=== PATIENT | female | born 1995 ===

== ENCOUNTER 2023-07-20 08:12 | Inpatient (IN) | payer OTHER, SELFPAY ==
[2023-07-20] VITALS (44 sets, daily range): BP systolic 83–164; BP diastolic 50–79; PULSE 75–210; RESP 16–18; TEMP 36.2–36.8; O2SAT 90–100; BMI 25.7
[2023-07-20] MEDS: LACTATED RINGERS 1000 ML 1,000 ML 1200 ML IV (08:22)
--- NOTE | 2023-07-20 08:58 | PM.OBHPLI ---
OB - H&P: HPI Labor/Induction History of Present Illness Date Seen: 07/20/23 Chief Complaint: The patient is a 27 year old 2 para 1 at 40.4 weeks gestation by 1st trimester ultrasound and LMP, who presents with contractions. Chief complaint: Maternity Narrative: Ruma Ferreira is a 27 year old female who had the onset of contractions at 4:30 this morning. She has had an uncomplicated to date. She was planning to be induced next week. She has not had ROM. Feeling good movement. Otherwise feeling well. She had 1 prior term vaginal delivery that was uncomplicated. History of Present care: good care Ultrasounds: normal 1st trimester US and normal mid trimester US Medical complications: none Labs Blood type: O (+) positive Rubella: immune RPR/VDLR: nonreactive GBS status: negative HBsAG: negative Review of Systems Status of ROS: Reports: 10 or more systems reviewed and unremarkable except as noted in History and below Meds Home Medications and Allergies Allergies Allergy/AdvReac Type Severity Reaction Status Date / Time amoxicillin Allergy Intermediate Hives Verified 07/20/23 08:50 OB - H&P: Exam Physical Exam: Vital signs: Temp Pulse Resp BP Pulse Ox 98.3 F 80 17 119/77 99 07/20/23 06:44 07/20/23 08:57 07/20/23 06:44 07/20/23 08:57 07/20/23 08:55 Routine Respiratory Exam: Respiratory: Present CTA bilaterally Routine Cardiovascular Exam: Cardiovascular: RRR Detailed Labor and Delivery Exam: Patient Gravid: Yes Dilation (cm): 2 Effacement (%): 60 Comments: per RN Fetus (Single): Heart Rate Baseline: 130 Monitor Accelerations: Present Monitor Decelerations: None Physical Exam: Vital signs: Temp Pulse Resp BP Pulse Ox 98.3 F 83 17 94/64 96 07/20/23 06:44 07/20/23 09:20 07/20/23 06:44 07/20/23 09:20 07/20/23 09:20 Detailed Labor and Delivery Exam: Patient Gravid: Yes Dilation (cm): 2 Effacement (%): 60 Fetus (Single): Heart Rate Baseline: 130 Monitor Accelerations: Present Monitor Decelerations: None OB - Problem Based A/P Additional Plan (1) Spontaneous onset of labor: Status: Acute Plan She has changed from 2.5 to 3.5 cm per RN. Admit for active labor. Patient desires epidural. Will get now. Anticipate later today. Delivery/Labor/Induction Plan Plan: expectant management OB - H&P - Exam Vital signs: Temp Pulse Resp BP Pulse Ox 98.3 F 75 17 94/54 L 96 07/20/23 06:44 07/20/23 09:22 07/20/23 06:44 07/20/23 09:22 07/20/23 09:20 Routine Respiratory Exam Present CTA bilaterally Routine Cardiovascular Exam Cardiovascular: Present RRR; Absent murmur Routine Abdominal Exam Comments: Gravid uterus. Baby cephalic by Leopolds. EFW 3500 g. Detailed Labor and Delivery Exam Dilation (cm): 2 Effacement (%): 60 Comments: per RN Fetus (Single) Heart Rate Baseline: 130 Monitor Accelerations: Present Monitor Decelerations: None
[2023-07-20] MEDS: ROPIVACAINE 0.2% 100 ml 100 ML 12 MG EPIDURAL (09:05)
--- NOTE | 2023-07-20 09:13 | PM.ANBPRC ---
PFSH PFSH Social History Smoking Status: Never smoker Meds Home Medications and Allergies Allergies Allergy/AdvReac Type Severity Reaction Status Date / Time amoxicillin Allergy Intermediate Hives Verified 07/20/23 08:50 Results Vital Signs Vital Signs: Last Vital Signs Temp 98.3 F 07/20/23 06:44 Pulse 84 07/20/23 09:12 Resp 17 07/20/23 06:44 BP 110/66 07/20/23 09:12 Pulse Ox 99 07/20/23 09:10 Weight: 74.48 kg Height: 170.18 cm Anesthesia Procedures Epidural Insertion Patient Location: OB Start Time: : Stop Time: :30 Start Date: 07/20/23 Stop Date: 07/20/23 Reason for Block: procedure for pain Patient Position: sitting Performed By: Luis Reyna Preanesthetic Checklist: IV checked, risks and benefits discussed, surgical consent, monitors and equipment checked, pre-op evaluation, timeout performed and anesthesia consent Prep: chlorhexidine gluconate Monitoring: blood pressure monitoring, continuous pulse oximetry and heart rate Approach: midline Vertebral Space: lumbar (1-5) Epidural Technique: FRANC saline Needle Type: Tuohy needle Injection Technique: continuous catheter Needle gauge: 17 Needle Length (cm): 10 cm Needle Insertion Depth (cm): 6 Catheter Gauge: 19 Catheter Type: multi-orifice Catheter at skin depth (cm): 12 Test Dose Result: negative and lidocaine 1.5% with epinephrine 1 to 200,000
--- NOTE | 2023-07-20 10:21 | P.OBPN_ITS ---
Subjective Date Seen: 07/20/23 Narrative: Patient comfortable with epidural. 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 Has a bulging bag but wants to wait on AROM. Would like to avoid intervention. She had a short episode of feeling short of breath without pain but that has resolved. Vitals were normal during this time. Anticipate soon.
[2023-07-20] MEDS: OXYTOCIN 30 unit/500 ML in NS 30 UNIT/500 ML BAG 325 UNIT IVPB (12:08)
--- NOTE | 2023-07-20 12:38 | W.PM.VAGDEL1 ---
Procedure Procedure Done: only Intrapartal Events: None Delivery monitor: external FHT and external uterine Route of delivery: Laceration description: Labial Delivery repair: Vicryl Estimated blood loss (mL): 350 Anesthesia type: Epidural Disposition: floor Narrative: 1st stage of labor: Contractions started at home at 4 am. Got more uncomfortable so she came in for evaluation. Found to be 2 cm initially and changed to 3.5 cm 1 hour later. Admitted for BISI. Desired to avoid interventions. Progressed and found to be complete at 1130. Tracing was category 1 through the first stage. 2nd stage of labor: AROM performed with clear fluid as bulging bag was present at cervix. Started pushing and progressed to delivery at 1208. Occasional bradycardia during 2nd stage. Heart rate would always come back up to the low 100s and generally in the 130s. No persistent bradycardia prior to delivery. There was a 30 second shoulder dystocia that responded to Joseph and suprapubic pressure. Baby delivered via OA position. She had the cord clamped and cut at the perineum due to initial poor tone and brought to warmer. Baby cried immediately when getting to the warmer. 3rd stage of labor: Pitocin started immediately after delivery of the infant. Placenta delivered spontaneously at 1212. She had bleeding from multiple blood vessels with a 2nd degree perineal laceration. 3 separate figure 8 sutures with 3-0 Vicryl were placed around bleeding vessels with improvement in bleeding. 2 interrupted sutures were placed in the perineal laceration with good approximation as well with resolution of bleeding. Sponge count correct after completion. No ongoing bleeding noted after repair. Infant Infant Gender: Female presentation: vertex Placental Delivery Description: Spontaneous Cord Description: 3 Vessels
[2023-07-20] MEDS: ACETAMINOPHEN 500 MG TABLET 1000 MG PO (19:02)
[2023-07-20] MEDS: IBUPROFEN 600 MG TABLET PO (20:05)
[2023-07-21 00:06] VITALS: BP 99/62; PULSE 81; RESP 16; TEMP 36.7; O2SAT 96
[2023-07-21] MEDS: IBUPROFEN 600 MG TABLET PO ×2 (04:31→14:22)
[2023-07-21 04:52] VITALS: BP 97/57; PULSE 99; RESP 18; TEMP 36.9; O2SAT 97
[2023-07-21 07:13] LABS: Hemoglobin* 11.1 gm/dL (12.0-16.0)
[2023-07-21] MEDS: ACETAMINOPHEN 500 MG TABLET 1000 MG PO (07:39)
[2023-07-21] MEDS: DOCUSATE SODIUM 100 MG CAPSULE PO (07:41)
[2023-07-21 07:49] VITALS: BP 106/69; PULSE 89; RESP 16; TEMP 36.5; O2SAT 98
[2023-07-21 11:25] VITALS: BP 100/65; RESP 16; TEMP 36.3; O2SAT 96
== END 2023-07-21 17:20 | disposition home or self-care (01) | DRG 807 ==
LOC: OB OUT 08:13 → OB 08:13
PROVIDERS: Admitting Provider Surgery; PCP Family Medicine; Visit Provider Surgery
DX: O48.0 Post-term pregnancy (principal); Z37.0 Single live birth; O70.1 Second degree perineal laceration during delivery; O66.0 Obstructed labor due to shoulder dystocia; O76 Abnormality in fetal heart rate and rhythm complicating labor and delivery; Z3A.40 40 weeks gestation of pregnancy
CPT/HCPCS: 01967; 36415; 85018; A9270; J2371; J2795; J7120; S0020

== ENCOUNTER 2024-11-18 12:02 | Outpatient (CLI) | payer OTHER, MEDICAID, SELFPAY ==
--- NOTE | 2024-11-18 12:15 | CRLHL7_ITS ---
For Patients: As a result of the Cures Act, medical imaging exams and procedure reports are released immediately into your electronic medical record. You may view this report before your referring provider. If you have questions, please contact your health care provider. OB ULTRASOUND INDICATION: Dating and viability. Surgery: None. Imaging: Transvaginal. TECHNIQUE: Real time grayscale imaging of the fetus was performed. Transvaginal. LMP: 09/19/2024. VONDA by LMP: 08/26/2024. GA: 8 w, 4 d. Previous US: No. CRL: 1.2 cm. 7 w 3 d. VONDA: 07/04/2025. FHR: 142 BPM. Gestational sac: 1.7 cm. Yolk sac: 4.0 mm. Appears within normal limits. Right ovary: 3.9 x 3.2 x 1.9 cm. CL. Left ovary: N/V. IMPRESSION: 1. Single living intrauterine with sonographic gestational age 7 weeks 3 days and sonographic due date 07/04/2025. 2. Incidental corpus luteal cyst right ovary. 3. Subchorionic hemorrhage is present surrounding the gestational sac, measuring up to 5.6 cm. Rojas Hdez M.D. Diagnostic Radiologist [email or web address] CARLOZ/bowen wiseman/Dictated by: Rojas Hdez MD @ 11/18/2024 1:09:00 PM (Electronically Signed)
== END 2024-11-18 12:03 | disposition home or self-care (01) ==
LOC: US 12:05
PROVIDERS: Visit Provider Registered Nurse
DX: Z34.91 Encounter for supervision of normal pregnancy, unspecified, first trimester (principal); O20.9 Hemorrhage in early pregnancy, unspecified; O34.81 Maternal care for other abnormalities of pelvic organs, first trimester; N83.11 Corpus luteum cyst of right ovary; Z3A.01 Less than 8 weeks gestation of pregnancy
CPT/HCPCS: 76817

== ENCOUNTER 2024-12-02 11:52 | Outpatient (CLI) | payer OTHER, MEDICAID, SELFPAY ==
--- NOTE | 2024-12-02 12:15 | CRLHL7_ITS ---
For Patients: As a result of the Century Cures Act, medical imaging exams and procedure reports are released immediately into your electronic medical record. You may view this report before your referring provider. If you have questions, please contact your health care provider. OB ULTRASOUND FIRST TRIMESTER TRANSVAGINAL INDICATION: Hemorrhage in early . TECHNIQUE: Real time marie scale imaging of the fetus was performed. Transvaginal. VONDA by US: 07/04/2025. GA: 9 w, 3 d. Previous US: Yes, 11/18/2024. VONDA by US: 07/04/2025. GA: 7 w, 3 d. CRL: 2.6 cm. 9 w 3 d. VONDA: 07/04/2025. FHR: 173 BPM. Gestational sac: 3.1 cm. Appears within normal limits. Yolk sac: 4.6 mm. Appears within normal limits. Right ovary: Within normal limits. 4.0 x 2.0 x 2.6 cm. CL. Left ovary: N/V. COMMENT: Single live IUP. IMPRESSION: 1. Sonographic gestational age 9 weeks 3 days and sonographic due date 07/04/2025. 2. Inferior subchorionic hemorrhage measures 2.8 x 3.5 x 2.6 cm, previously measuring up to 5.6 cm. Rojas Hdez M.D. Diagnostic Radiologist [email or web address] SP/Dictated by: Rojas Hdez MD @ 12/03/2024 8:11:00 PM (Electronically Signed)
== END 2024-12-02 11:53 | disposition home or self-care (01) ==
LOC: US 11:52
PROVIDERS: Visit Provider Advanced Practice Midwife
DX: O20.9 Hemorrhage in early pregnancy, unspecified (principal); Z3A.09 9 weeks gestation of pregnancy
CPT/HCPCS: 76817; 83021; 86592; 86703; 86704; 86706; 86762; 86787; 86803; 86850; 86900; 86901; 87086; 87340

== ENCOUNTER 2024-12-02 13:15 | Outpatient (CLI) | payer OTHER, SELFPAY | END 2024-12-02 13:16 | disposition home or self-care (01) | PROVIDERS: Visit Provider Advanced Practice Midwife | DX: Z34.81 Encounter for supervision of other normal pregnancy, first trimester (principal) | CPT/HCPCS: 83020; 83021; 85660; 86592; 86703; 86704; 86706; 86762; 86787; 86803; 86850; 86900; 86901; 87086; 87340 ==

== ENCOUNTER 2025-02-12 08:09 | Outpatient (CLI) | payer OTHER, MEDICAID, SELFPAY ==
--- NOTE | 2025-02-12 08:15 | CRLHL7_ITS ---
For Patients: As a result of the Century Cures Act, medical imaging exams and procedure reports are released immediately into your electronic medical record. You may view this report before your referring provider. If you have questions, please contact your health care provider. OBSTETRICAL ULTRASOUND ??? ANATOMY SURVEY, 02/12/2025 INDICATION: anatomy survey. CLINICAL HISTORY: VONDA by ultrasound: 07/04/2025 Gestational age: 19 weeks 5 days TECHNIQUE: Real-time marie-scale transabdominal imaging of the fetus was performed. PRIOR ULTRASOUND: 12/02/2024, 11/18/2024. FINDINGS: position: Multiple positions. Cervix: Visualized Technique: Transabdominal Length of closed cervix: 3.5 cm Placenta position: Anterior, fundal Placenta tip to internal os: 12.8 cm Umbilical cord: 3-vessel cord Placental insertion: Central Amniotic fluid: 5.1 cm SDP (greater than/equal to 2 to less than 8 cm) ANATOMY SURVEY: Observed Structures Cerebellum: Yes; 1.9 cm, 19 weeks 4 days Cisterna magna: Yes; 5.8 mm Nuchal fold: Yes; 3.9 mm Lateral ventricle: Yes; 6.4 mm CSP: Yes Midline falx: Yes Choroid plexus: Yes Spine: Suboptimally seen Stomach: Yes Abdominal cord insert: Yes Urinary bladder: Yes Kidneys: Yes Diaphragm: Yes Nose/lips: Yes Orbital view: Yes Profile: Suboptimally seen Upper extremities: Yes Lower extremities: Yes Hands: Yes Feet: Yes 4-chamber heart: Yes LVOT: Yes RVOT: Yes 3VV: Yes 3VTV: Yes BIOMETRY BPD: 4.4 cm, 19 weeks 3 days, 35% HC: 17.0 cm, 19 weeks 4 days, 38% AC: 14.8 cm, 20 weeks 0 days, 56% FL: 3.2 cm, 19 weeks 6 days, 48% FL/AC: 21.5% HC/AC ratio: 1.2 heart rate: 152 bpm age by this ultrasound: 19 weeks 5 days VONDA by this ultrasound: 07/04/2025 Estimated weight: 319.9 grams (0 pounds 11 ounces) Percentile by VONDA: 56.6% IMPRESSION: 1) Concordance of clinical and sonographic dating. 2) Incomplete visualization of the spine due to position. 3) Possible micrognathia. Level 2 maternal- medicine consultation recommended. 4) Remainder of the anatomic survey is normal. 5) Echogenic debris located within the amniotic fluid, not typical for this gestational age. Again, MFM consult recommended. ROJAS ALANIZ M.D. Diagnostic Radiologist [email or web address] Transcribed: 11:[address]/Dictated by: Rojas Alaniz MD @ 02/12/2025 10:33:00 AM (Electronically Signed)
--- OUTSIDE RECORDS SUMMARY | 2025-02-13 00:30 | XMS_ITS | Clinical Summary ---
Author Organization [facility] Address [address] [place] [address] Care Team Providers Care Supply Chain Intern Name Role Phone Pcp, No Primary Care Provider Unavailabl e Allergies Active Allergy Reactions Criticality Noted Date Comments Amoxicillin Hives High 08/31/2014 Medications PNV Cmb#[id number] Acid 14 mg iron- 400 mcg tabIndications:En counter for supervision of normal in multigravida in first trimester (HC) Take by mouth once daily. 90 Tablet 3 11/27/2022 Active cholecalciferol (Vitamin D-3) 2,000 unit capsule Take 4,000 units by mouth once daily. Active Active Problems Problem Noted Date Diagnosed Date Pap smear for cervical cancer screening 01/25/20 Overview (01/24/2023): 12/2022 NIL/HPV Negative Plan: Pap and HPV due 12/2027 Resolved Problems Problem Noted Date Diagnosed Date Resolved Date Encounter for supervision of normal in multigravida in first trimester 11/27/202209/02 Overview (06/26/2023): Estimated Date of Delivery: 07/16/23 Patient's last menstrual period was 09/19/2022 (exact date). Screening: Declines Panorama, CF and SMA, declined AFP 20 week US: low risk GCT: Problems: First delivery at [facility]- reviewed by LG and no concerns, pushed 6 times Genetic: FOBs mother has CADASIL (thickening of small and med vessels blocking flow to brain). FOB had US-showed no evidence, further screening is very expensive. Sister was tested, negative. Father, Brother, high functioning Aspergers Entrococcus UTI @ [facility]- tx'd with Keflex- CONCETTA negative @ 16 wks Possible Coxsackie A (hand/foot/mouth) @ [facility] Hep C reactive w/ intake labs. RNA not detected. GBS- Vaginal/Rectal OB Strep B PCR Date Value Ref Range Status 06/17/2023 Negative Final Glucose (GTT) result- GLUCOSE,GESTATIONAL Date Value Ref Range Status 04/25/2023 92 70 - 139 mg/dL Final Last Tdap- 04/25/23 Last Flu vaccine- None OB Labs: ABORH Date Value Ref Range Status 12/17/2022 O Rh Positive Final ANTIBODY SCREEN Date Value Ref Range Status 12/17/2022 Negative Negative Final TREPONEMA PALLIDUM Date Value Ref Range Status 04/25/2023 Negative Negative Final RUBELLA IGG ANTIBODY Date Value Ref Range Status 12/17/2022 2.25 >=1.00 Index Final INTERPRETATION Date Value Ref Range Status 12/17/2022 Positive Final Comment: Presence of detectable IgG antibodies. A positive result generally indicates exposure to the virus or previous vaccination, but is not an indication of active infection or stage of disease. 12/17/2022 Positive Final Comment: Presence of detectable IgG antibodies. A positive result generally indicates exposure to the virus or previous vaccination, but is not an indication of active infection or stage of disease. Hep B Surf Ag Scr Date Value Ref Range Status 12/17/2022 Negative Negative Final HCV Ab Date Value Ref Range Status 12/17/2022 Reactive (A) Non Reactive Final HCV PCR Interp Date Value Ref Range Status 12/17/2022 Final Comment: Test not performed. Insufficient specimen to perform or complete analysis. 12/20/2022 VARICELLA ZOSTER IGG ANTIBODY Date Value Ref Range Status 12/17/2022 685.1 >=165.0 INDEX Final HEMOGLOBIN Date Value Ref Range Status 04/25/2023 12.2 12.0 - 16.0 g/dL Final PLATELET COUNT Date Value Ref Range Status 12/19/2022 235 140 - 440 thou/cu mm Final CHLAMYDIA PROBE Date Value Ref Range Status 12/20/2022 Negative Final N GONORRHOEAE PROBE Date Value Ref Range Status 12/20/2022 Negative Final HIV Scr 4th Gen Date Value Ref Range Status 12/17/2022 Non Reactive Non Reactive Final Comment: HIV Negative HIV-1/HIV-2 antibodies and HIV-1 p24 antigen were NOT detected. There is no laboratory evidence of HIV infection. Allergies Allergen Reactions Amoxicillin Hives OB History Para Term AB Living 2 1 1 0 0 1 SAB IAB Ectopic Multiple Live Births 0 0 0 0 1 # Outcome Date GA Lbr Scott/2nd Weight Sex Delivery Anes PTL Lv 2 Current 1 Term 06/11/21 41w1d / 00:22 3.36 kg (7 lb 6.5 oz) F Vag-Spont N CANDY Complications: Intolerance Name: CARYN CARRASCO Apgar1: 9 Apgar5: 9 Past Medical History: . Date (spontaneous vaginal delivery) 06/11/2021 Past Surgical History: . Laterality Date WISDOM TEETH EXTRACTION Problems (from 11/27/22 to present) Problem Noted Resolved Encounter for supervision of normal in multigravida in first trimester 11/27/2022 by Cate Matta NP No Overview Addendum 02/26/2023 10:57 AM by Maria A Deluca MD Primary OB: [facility]/P ([place]) Screening: Declines Panorama, CF and SMA, declined AFP 20 week US: low risk GCT: Problems: First delivery at [facility]- reviewed by LG and no concerns, pushed 6 times Genetic: FOBs mother has CADASIL (thickening of small and med vessels blocking flow to brain). FOB had US-showed no evidence, further screening is very expensive. Sister was tested, negative. Father, Brother, high functioning Aspergers Entrococcus UTI @ [facility]- tx'd with Keflex- CONCETTA negative @ 16 wks Possible Coxsackie A (hand/foot/mouth) @ [facility] Hep C reactive w/ intake labs. RNA not detected. Cheryl March RN ....06/26/2023 11:48 AM (spontaneous vaginal delivery) 06/11/2021202206/26/2023 Immunizations Immunization Administration Dates Next Due DTaP 02/15/1999, 9,02/17/1994,1993 ,1993 Hepatitis B (Peds) 1994,05/21/1994, 994 Human Papilloma Virus Vaccine 10/23/2007, 008,04/17/2007 Inactivated Polio Vaccine 09/29/1998,02/17/1994, 1993,1993 MMR 09/29/1998,11/26/1994 Meningococcal Vaccine (Menactra) 04/18/2012,01/2008,04/17/2007 Tdap 04/25/2023,,08/01/2020,10/23/2007 ,04/17/2007 Varicella Vaccine 01/31/2003 Family History Medical History Relation Name Comments Diabetes type II Maternal Grandmother Relation Name Status Comments Maternal Grandmother Social History Tobacco Use Types Packs/Day Years Used Date Smoking Tobacco: Never Passive Smoke Exposure: Never Smokeless Tobacco: Never Tobacco Cessation:Counseling Given: Yes Alcohol Use Standard Drinks/Week Comments Not Currently 0 (1 standard drink = 0.6 oz pur e alcohol) SOCC PHQ-2 Answer Date Recorded PHQ-2 TOTAL SCORE 0 09/02/2023 Social Connections Answer Date Recorded Do you often feel lonely or isolated from those around you? 0 06/17/2023 Financial Resource Strain Answer Date R ecorded Difficulty of Paying Living Expenses 3 06/17/2023 Difficulty of Paying Living Expenses Not on file 06/17/2023 Food Insecurity Answer Date Recorded Do you worry your food will run out before you are able to buy more? 1 06/17/2023 Transportation Needs Answer Date Record ed Does lack of transportation keep you from medica l appointments? 1 06/17/2023 Does lack of transportation keep you from work, meetings or getting things that you need? 1 06/17/2023 Housing Stability Answer Date Recorded What is your housing situation today? 1 06/17/2023 Comments No Sex and Gender Information Value Date Recorded Sex Assigned at Not on file Legal Sex Female 9:27 AM CDT Gender Identity Not on file Sexual Orientation Not on file Obstetrics History Para Term AB IAB SAB Ectopic Multiple Livin g Live Births 2 2 2 2 2 Date Outcome GA Total Labor Labor/2nd/3rd Weight Sex Type Anes PTL Candy A1 A5 Name Clin 2020 Term 41w 1d 0h 25m 0h 22m/0h 03m 3.36 kg (7 lb 6.5 oz) F Vag-S pont N Livin g 9 9 LATIME R,BABY GIRL DANY campos MD Complications: Intolera nce Delivery Location:[facility] ([facility]) 2022 Term 40w 4d Vag Livin g Last Filed Vital Signs Vital Sign Reading Time Taken Comments Blood Pressure 108/67 09/23/2023 10:59 AM MANAGEMENT DEPARTMENT CHAIR Pulse 80 09/23/2023 10:59 AM MANAGEMENT DEPARTMENT CHAIR Temperature 36.6 C (97.9 F) 09/02/2023 10:23 AM MANAGEMENT DEPARTMENT CHAIR Respiratory Rate 16 12/12/2022 11:3 0 PM CDT Oxygen Saturation 97% 09/02/2023 10: 23 AM MANAGEMENT DEPARTMENT CHAIR Inhaled Oxygen Concentration - - Weight 61.1 kg (134 lb 12.8 oz) 024 10:59 AM MANAGEMENT DEPARTMENT CHAIR Height 170.2 cm (5' 7) 09/02/2023 10:2 3 AM MANAGEMENT DEPARTMENT CHAIR Body Mass Index 21.11 09/02/2023 10:23 AM MANAGEMENT DEPARTMENT CHAIR Plan of Treatment Health Maintenance Due Date Last Done Comments COVID-19 vaccine series ( season) 2024 BMI (ht and wt on same day) for age 18+ 09/02/2024 09/02/2023, 12/20/2022 Depression screening for age 12+ 09/02/2024 09/02/2023, 04/25/2023, 12/24/2022, Additional history exists Influenza Vaccine (Season Ended) 2025 Pap test for age 21-65 12/21/2027 12/20/2022, 2022 Tetanus booster 04/25/2033 04/25/2023, 0 10/2020, 08/01/2020, Additional history exists Hepatitis B series for 19+ Completed 08/24, 05/21/1994, 1993 HIV for age 15-65 Completed 12/17/2022 Hepatitis C screening for age 18-79 Completed 12/25/2022, 12/17/2022 Tdap Completed 04/25/2023, 0 10/2020, 08/01/2020, Additional history exists Pneumococcal series for age 6-49 Aged Out No longer eligible based on patient's age to complete this topic Procedures Procedure Name Priority Date/Time Associated Diagnosis Comments HCV RNA QUANT Routine 12/25/2022 1:52 PM CDT Encounter for supervision of normal in multigravida in first trimester (HC) AUTOMATIC MACHINES SUPERVISOR THIN PREP PAP SCREEN IMAGED Routine 12/20/2022 3:15 PM CDT Screening for cervical cancer LC HIV-1/O/2, 4TH GENERATION Routine 12/17/2022 9:33 AM CDT Encounter for supervision of normal in multigravida in first trimester (HC) from Last 3 Months or Most Recently Relevant to Health Maintenance Results * HCV RNA QUANT (12/25/2022 1:52 PM CDT) HCV RNA RT-PCR HCV RNA not detected HCV RNA not detected IU/mL 12/31/2022 3:51 PM CDT [facility] Blood BLOOD SPECIMEN / Unknown Venipuncture / Unknown 12/25/2022 1:52 PM CDT 12/25/2022 1:55 PM CDT Narrative [facility] - 12/31/2022 3:51 PM CDT Method: [place] HCV Test us Maria A Deluca MD SEND OUTS Final Resu lt [facility] [address] [place] [address], * AUTOMATIC MACHINES SUPERVISOR THIN PREP PAP SCREEN IMAGED (12/20/2022 3:15 PM CDT) Case Report Gynecologic Cytology Report Case: [id number] Authorizing Provider: Maria A Deluca MD Collected: 12/20/2022 1515 Ordering Location: [facility] Received: 12/20/2022 1516 Clinic First Screen: [place] Specimen: AUTOMATIC MACHINES SUPERVISOR ThinPrep Vial Screening, Cervical 01/23/2023 10:00 AM CDT [facility] INTERPRETATION/ RESULT NEGATIVE FOR INTRAEPITHELIAL LESION OR MALIGNANCY (NIL) (none) 01/23/2023 10:00 AM CDT [facility] at 1000 CDT SPECIMEN ADEQUACY Satisfactory for evaluation Endocervical component present 01/23/2023 10:00 AM CDT [facility] HPV REQUEST HPV and PAP 01/23/2023 10:00 AM CDT [facility] Date of LMP 09/19/22 01/23/2023 10:00 AM CDT [facility] Last Pap Date 10/21/2020 01/23/2023 10:00 AM CDT [facility] Last Pap Result NIL 10:00 AM CDT [facility] Abnormal Pap or Dougherty Bx in last 5 years No 01/23/2023 10:00 AM CDT [facility] Menstrual Status 01/23/2023 10:00 AM CDT [facility] Dougherty Bx Done Today No 01/23/2023 10:00 AM CDT [facility] Additional Information None given 01/23/2023 10:00 AM CDT [facility] Comment: Cytology is screened at [facility] - [address], [place] [address] and [facility] [place] [facility] - [address], [place] [address] and [facility] - [address] [place] [address] Interpreted at [facility] [place] [facility] - [address], [place] [address] Automated Review Successful 01/23/2023 10:00 AM CDT [facility] Comment:Specimen processed s uccessfully by automated helicopter pilot instructor device, ThinPrep Imaging System, [employer] ANCILLARY TESTING AUTOMATIC MACHINES SUPERVISOR HPV Ordered, Please see separate report 01/23/2023 10:00 AM CDT [facility] Note The pap test is a screening technique, not a diagnostic procedure. It is used primarily to screen for squamous cancers and precursor lesions. Published studies have shown that it is subject to both false negative and false positive results. The pap test should not be used as the sole means to diagnose or exclude pre-malignant and malignant lesions. 01/23/2023 10:[address] [facility] Other (Cervical) Non-Blood / Unknown 12/20/2022 3:15 PM CDT 12/20/2022 3:16 PM CDT us Maria A Deluca MD PATHOLOGY/CYTOLOGY Final R esult [facility] [address] [place] [address], * LC HIV-1/O/2, 4TH GENERATION (12/17/2022 9:33 AM CDT) HIV Scr 4th Gen Non Reactive Non Reactive 12/19/2022 9:10 AM CDT [facility] ([facility]) Comment: HIV Negative HIV-1/HIV-2 antibodies and HIV-1 p24 antigen were NOT detected. There is no laboratory evidence of HIV infection. Blood BLOOD SPECIMEN / Unknown Venipuncture / Unknown 12/17/2022 9:33 AM CDT 12/17/2022 9:33 AM CDT Narrative [facility] ([facility] - 12/19/2022 9:10 AM CDT Performed at: [address] [place] [id number] Poultry Trimmer: Emerson Mejia MD, Phone: [phone] us Cate Matta [facility] Cristela l Result [facility] ([facility] [address] [place] [id number], from Last 3 Months or Most Recently Relevant to Health Maintenance Insurance [employer] MEDICAID Care Teams Supply Chain Intern Relationship Specialty Start Date End Date Pcp, Rena Mcgregor PCP - General 07/04/23
--- OUTSIDE RECORDS SUMMARY | 2025-02-13 00:30 | XMS_ITS | Clinical Summary ---
Author Organization [employer] Address [address] [place] [address] Care Team Providers Care Softball Player Name Role Phone Jos Reynolds MD Primary Care Provider [phone] Source Comments You are receiving this document as you are listed as the primary care provider,follow-up provider, or the patient has been referred to you for consultation.This is in compliance with the Medicare and[facility] EHR Incentive Program,which states Providers who transition their patient to another setting of careor provider of care or refers their patient to another provider of care shouldprovide summary care record for each transition of care or referral. [employer] Allergies Active Allergy Reactions Criticality Noted Date Comments Amoxicillin Hives High 08/31/2014 Medications * This document contains information received from the source organization and may not represent a complete record from that organization. vitamin-ferrous fumarate-folic acid (PRENATALPLUS) 27-1 MG tablet Take 1 Tablet by mouth daily. Active Active Problems Problem Noted Date Diagnosed Date (spontaneous vaginal delivery) 06/11/2021 Full-term julio césar ROM, onset labor within 24 hours of rupture 06/10/2021 Vaginal bleeding in , third trimester 1 COVID-19 affecting in second trimester 01/19/2021 Overview (01/19/2021): + covid at 17 weeks, mild. Plan 32 week growth scan. Supervision of normal first , antepartu m 12/02/2020 Overview (01/19/2021): Normal 20 week ultrasound. Immunizations Immunization Administration Dates Next Due 4vHPV (Gardasil) 10/23/2007,08/22/2007, 7 DTaP 02/15/1999, 9,02/17/1994,1993, 994 HepB Ped/Adol (0-18 yrs) 1994,05/21/1994,0 1993 IPV (Polio) 09/29/1998,02/17/1994,1993 ,1993 MCV4 (Menactra) 04/18/2012,10/23/2007,04/17/2007 MMR 09/29/1998,11/26/1994 Tdap 04/21/2021,08/01/2020,10/23/2007 ,04/17/2007 Varicella 01/31/2003 Family History Medical History Relation Name Comments No Known Problems Father No Known Problems Mother Mental Disorder Brother Genetic Disorder Maternal Grandfather Hyperlipidemia Maternal Grandfather Diabetes, Type II Maternal Grandmother Cancer, Pancreatic Paternal Grandmother Relation Name Status Comments Father Alive Mother Alive Brother Alive Maternal Grandfather Alive Maternal Grandmother Alive Paternal Grandfather Alive Paternal Grandmother Sister Alive Social History Tobacco Use Types Packs/Day Years Used Date Smoking Tobacco: Never Smokeless Tobacco: Never Tobacco Cessation:Counseling Given: No Alcohol Use Standard Drinks/Week Comments Not Currently 0 (1 standard drink = 0.6 oz pur e alcohol) PHQ-2 Answer Date Recorded PHQ-2 Score 2 08/01/2020 Depression Answer Date Recor ded Last EPDS Total Score 10 07/26/2021 Last EPDS Self Harm Result 0-->never 07/26 Comments No Sex and Gender Information Value Date Recorded Sex Assigned at Not on file Legal Sex Female 6:04 AM CDT Gender Identity Not on file Sexual Orientation Not on file 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 Not on file Not on [place] [employer] Last Filed Vital Signs Vital Sign Reading Time Taken Comments Blood Pressure 119/77 07/26/2021 10:19 AM TOOLS DEVELOPER Pulse 84 07/26/2021 10:19 AM TOOLS DEVELOPER Temperature 36.9 C (98.4 F) 06/12/2021 5:00 PM CDT Respiratory Rate 20 06/12/2021 5:0 0 PM CDT Oxygen Saturation 96% 06/11/2021 3:00 AM CDT Inhaled Oxygen Concentration - - Weight 58.4 kg (128 lb 11.2 oz) 021 10:19 AM TOOLS DEVELOPER Height 170.2 cm (5' 7) 06/10/2021 11:4 6 AM CDT Body Mass Index 20.16 06/10/2021 11:46 AM CDT Plan of Treatment Health Maintenance Due Date Last Done Comments Hep C Screening (Preventive Services) 1993 HPV Vaccine (3 - 2-dose series) 01/15/2008 10/23/2007, 08/22/2007, 04/17/2007 Adult Preventive Visit 01/14/2021 01/14/2019, 2017 Cervical Cancer Screening 10/22/2023 10/21/2020, COVID-19 Vaccine ( season) 2024 Influenza Vaccine (Season Ended) 2025 DTaP/Tdap/Td Vaccine (9 - Tdap) 04/21/2031 04/21/2021, 08/01/2020, 10/23/2007, Additional history exists Zoster/Shingles Vaccine (1 of 2) 2043 HepB Vaccine Completed 1994, 10/1993, 1993 IPV (Polio) Vaccine Completed 09/29/1998, 02/17/1994, 1993, Additional history exists MCV4 Vaccine Completed 04/18/2012, 01/2008, 04/17/2007 HIV Screening (Preventive Services) Completed 10/21/2020 HepA Vaccine Aged Out No longer eligi ble based on patient's age to complete this topic Hib Vaccine Aged Out No longer eligi ble based on patient's age to complete this topic Meningococcal B Vaccine Aged Out No l onger eligible based on patient's age to complete this topic Pneumococcal Vaccine Aged Out No long er eligible based on patient's age to complete this topic Procedures Procedure Name Priority Date/Time Associated Diagnosis Comments CYTOLOGY (PAP) Routine 10/21/2020 3:39 PM TOOLS DEVELOPER Encounter for supervision of normal first in first trimester Screening for malignant neoplasm of cervix HIV 1/2 AG/AB 4TH GEN Routine 10/21/2020 3:07 PM TOOLS DEVELOPER Encounter for supervision of normal first in first trimester Screening examination for venereal disease from Last 3 Months or Most Recently Relevant to Health Maintenance Results * PAP Test (10/21/2020 3:39 PM TOOLS DEVELOPER) Case Report Pap Case: [id number] Authorizing Provider: Jannette Devi APRN, CNM Collected: 10/21/2020 1539 Ordering Location: [place] Received: 10/21/2020 1711 Obstetrics/Gynec ology First Screen: Norma Black CT (ASCP) Specimen: Pap Test, Routine, Cervix/Endocervix 10/25/2020 11:52 AM TOOLS DEVELOPER [facility] Pap Specimen Adequacy Satisfactory for evaluation, endocervical/rosado sformation zone component absent. 10/25/2020 11:52 AM TOOLS DEVELOPER [facility] Pap Interpretation Negative for intraepithelial lesion or malignancy (NILM). 10/25/2020 11:52 AM TOOLS DEVELOPER [facility] at 1152 TOOLS DEVELOPER Pap Disclaimer The Pap test is a screening test designed to aid in the detection of cervical cancer and its precursor lesions. It is not a diagnostic procedure and should not be used as the sole means of detecting cervical cancer. Both false-positive and false-negative results may occur. 10/25/2020 11:52 AM TOOLS DEVELOPER [facility] Gross Description The specimen is received in SurePath fixative and properly labeled. 1 Pap-stained SurePath slide is prepared. 10/25/2020 11:52 AM TOOLS DEVELOPER [facility] Embedded Images 11:52 AM TOOLS DEVELOPER [facility] Other Specimen Type ENTIRE ENDOCERVIX / Unknown 10/21/2020 3:39 PM TOOLS DEVELOPER 10/21/2020 5:11 PM TOOLS DEVELOPER Comment:LMP: Patient's last menstrual period was 08/17/2020. Jannette Devi APRN, YG LAB PATHOLOGY Final Res ult Performing Organization Address City/[facility]/ZIP Co de Phone Number [facility] [address] * HIV 1/2 Ag/Ab 4th Generation (10/21/2020 3:07 PM TOOLS DEVELOPER) HIV 1/2 Antigen/Antib noemí (4th generation) Negative (Non Reactive) Negative (Non Reactive) 10/21/2020 6:59 PM TOOLS DEVELOPER [facility] Comment:HIV-1 p24 Antigen an d HIV-1/HIV-2 Antibody not detected Blood Venipuncture / Unknown 10/21/2020 3:07 PM TOOLS DEVELOPER 10/21/2020 3:07 PM TOOLS DEVELOPER Jannette Devi APRN, YG LAB_1 Final Res ult Performing Organization Address [place]/[facility] de Phone Number [facility] [address] [place] [address] from Last 3 Months or Most Recently Relevant to Health Maintenance Insurance [employer] [address] [place] [address] * Guarantor: KAYLA DELA CRUZ Account Type Relation to Patient Date of Phone Billing Address Personal/Family 1966 [id number] [place] [id number] [address] [place] [phone] Advance Directives * Full Code (Latest Code Status on File) Date Activated Date Inactivated Comments 06/10/2021 6:40 AM 06/13/2021 12:23 AM Care Teams Softball Player Relationship Specialty Start Date End Date Jos Reynolds MD [address] [place] [address] PCP - General Internal Medicine 01/13/19
--- OUTSIDE RECORDS SUMMARY | 2025-02-13 00:30 | XMS_ITS | Clinical Summary ---
Author Organization [facility] Address [address] [place] [address] Care Team Providers Care Emergency Spill Response Technician Name Role Phone No Ref-Primary, Physician Primary Care Provider Vianey Nettles MD Unavailable Allergies Active Allergy Reactions Criticality Noted Date Comments Amoxicillin Hives High 08/31/2014 Medications fluticasone (FLONASE) 50 MCG/ACT nasal sprayIndication s:Nasal congestion [place] 1 spray into both nostrils daily. 16 g 1 10/12/2024 Active Immunizations Immunization Administration Dates Next Due DTAP (<7y) 02/15/1999, 9,02/17/1994,12/25,1993 HPV Quadrivalent 10/23/2007,08/22/2007, 7 Hepatitis B, Peds (Engerix-B/Recombivax HB) 1994,05/21/1994,1993 MMR (MMRII) 09/29/1998,11/26/1994 Meningococcal ACWY (Menactra ) 04/18/2012,10/23/2007,04/17/2007 Poliovirus, inactivated (IPV) 09/29/1998 ,02/17/1994,1993,10/20 TDAP (Adacel,Boostrix) 04/25/2023,2020,08/01/2020,10/22,04/17/2007 Varicella (Varivax) 01/31/2003 Social History Tobacco Use Types Packs/Day Years Used Date Smoking Tobacco: Never Smokeless Tobacco: Never Tobacco Cessation:Counseling Given: Not Answered PHQ-2 Answer Date Recorded PHQ-2 Score 0 10/12/2024 Interpersonal Safety Answer Date Record ed Do you feel physically and e motionally safe where you currently live? Yes 10/12/2024 Within the past 12 months, h ave you been hit, slapped, kicked or otherwise physically hurt by someone? No 10/12/2024 Within the past 12 months, h ave you been humiliated or emotionally abused in other ways by your partner or ex-partner? No 10/12/2024 Comments No Sex and Gender Information Value Date Recorded Sex Assigned at Not on file Legal Sex Female 7:18 AM ADMINISTRATIVE OFFICE SPECIALIST Gender Identity Not on file Sexual Orientation Not on file Last Filed Vital Signs Vital Sign Reading Time Taken Comments Blood Pressure 103/71 10/12/2024 9:25 AM ADMINISTRATIVE OFFICE SPECIALIST Pulse 91 10/12/2024 9:25 AM ADMINISTRATIVE OFFICE SPECIALIST Temperature 36.9 C (98.4 F) 10/12/2024 9:25 AM ADMINISTRATIVE OFFICE SPECIALIST Respiratory Rate 16 10/12/2024 9:25 AM ADMINISTRATIVE OFFICE SPECIALIST Oxygen Saturation 98% 10/12/2024 9:25 AM ADMINISTRATIVE OFFICE SPECIALIST Inhaled Oxygen Concentration - - Weight 57.6 kg (127 lb) 10/12/2024 9:25 AM ADMINISTRATIVE OFFICE SPECIALIST Height 171.5 cm (5' 7.5) 10/12/2024 9:25 AM ADMINISTRATIVE OFFICE SPECIALIST Body Mass Index 19.6 10/12/2024 9:25 AM ADMINISTRATIVE OFFICE SPECIALIST Plan of Treatment Health Maintenance Due Date Last Done Comments ADVANCE [employer]ARE PLANNING 1993 ANNUAL REVIEW OF HM ORDERS 1993 HPV VACCINE (3 - 2-dose series) 01/15/2008 10/23/2007, 08/22/2007, 04/17/2007 YEARLY PREVENTIVE VISIT 01/15/2020 01/14/2019, 11/02 COVID-19 VACCINE ( season) 2024 INFLUENZA VACCINE (Season Ended) 2025 PAP 12/20/2025 12/20/2022, 10/21/2020 DTAP/TDAP/TD VACCINE (10 - Td or Tdap) 04/25/2033 04/25/2023, 04/21/2021, 08/01/2020, Additional history exists ZOSTER VACCINE (1 of 2) 2043 HEPATITIS B VACCINE Completed 1994, 05/21/1994, 1993 MENINGITIS VACCINE Completed 04/18/2012, 0 10/23/2007, 04/17/2007 HIV SCREENING Completed 12/17/2022, 10/21/2020 HEPATITIS C SCREENING Completed 12/25/2022 PHQ-2 (once per calendar year) Completed 10/12/2024 PNEUMOCOCCAL VACCINE: PEDIATRICS (0 to 5 YEARS) AND AT-RISK PATIENTS (6 to 49 YEARS) Aged Out No longer eligible based on patient's age to complete this topic Insurance [employer] [place] [employer] [place] Care Teams Emergency Spill Response Technician Relationship Specialty Start Date End Date No Ref-Primary, Physician PCP - General 10/12/24 [place] [id number] [place] [address] Assigned PCP 11/08/24
== END 2025-02-12 08:10 | disposition home or self-care (01) ==
LOC: US 08:10
PROVIDERS: Visit Provider Midwife
DX: Z34.92 Encounter for supervision of normal pregnancy, unspecified, second trimester (principal); Z3A.19 19 weeks gestation of pregnancy
CPT/HCPCS: 76805

== ENCOUNTER 2025-03-04 11:05 | Outpatient (CLI) | payer OTHER, MEDICAID, SELFPAY ==
--- NOTE | 2025-03-04 11:15 | CRLHL7_ITS ---
For Patients: As a result of the Century Cures Act, medical imaging exams and procedure reports are released immediately into your electronic medical record. You may view this report before your referring provider. If you have questions, please contact your health care provider. OB ULTRASOUND FOLLOW-UP, 03/04/2025 CLINICAL HISTORY: Follow-up missing anatomy views, profile, spine, fluid check debris. TECHNIQUE: Real time marie scale imaging of the fetus was performed. Transabdominal imaging performed. FINDINGS: VONDA by US: 07/04/2025. GA: 22 weeks 4 days. Gestation: Single. COMPARISON: 02/12/2025, 12/02/2024, 11/18/2024. Cervix: Visualized. Positioning: Vertex. Amniotic Fluid: 5.3 cm SDP. Placenta: Technique: TA. Placenta Position: Anterior. Dopplers: Heart Rate: 144 bpm. IMPRESSION: 1. Normal profile, spine and amniotic fluid with single deepest pocket measuring 5.3 cm. 2. Increased color flow posterior to the placenta. Follow-up in the third trimester recommended. Rojas Hdez M.D. Diagnostic Radiologist [email or web address] Transcribed: 2:01 pm DW/Dictated by: Rojas Hdez MD @ 03/04/2025 1:28:00 PM (Electronically Signed)
== END 2025-03-04 11:06 | disposition home or self-care (01) ==
LOC: US 11:05
PROVIDERS: Visit Provider Midwife
DX: Z36.2 Encounter for other antenatal screening follow-up (principal); Z3A.22 22 weeks gestation of pregnancy
CPT/HCPCS: 76816

== ENCOUNTER 2025-04-16 09:31 | Outpatient (CLI) | payer OTHER, MEDICAID, SELFPAY | END 2025-04-16 09:32 | disposition home or self-care (01) | PROVIDERS: Visit Provider Midwife | DX: Z34.93 Encounter for supervision of normal pregnancy, unspecified, third trimester (principal); Z3A.28 28 weeks gestation of pregnancy | CPT/HCPCS: 86592 ==

== ENCOUNTER 2025-05-03 01:58 | Outpatient (CLI) | payer OTHER, MEDICAID, SELFPAY ==
[2025-05-03] VITALS (11 sets, daily range): BP systolic 102–128; BP diastolic 63–80; PULSE 85–111; TEMP 36.8; O2SAT 93–98
[2025-05-03 02:26] LABS: Appearance Urine Cloudy (Clear)
--- NOTE | 2025-05-03 02:43 | CRLHL7_ITS ---
For Patients: As a result of the Century Cures Act, medical imaging exams and procedure reports are released immediately into your electronic medical record. You may view this report before your referring provider. If you have questions, please contact your health care provider. Indication: Bleeding. Technique: Sonography of the gravid uterus was performed. The study was performed limited to the factors discussed below. Comparison: Portions of examinations dated February 12, 2025 and March 04, 2025 Findings: There is a single live intrauterine gestation that is currently vertex. The cervix is visualized. The length is 4.1 centimeters. The os is closed. The single deepest pocket is 5.8 centimeters The placenta is anterior. There is no previa. There is no hemorrhage identified that is clearly related to the margin of the placenta or posterior to the placenta. No placental abnormalities observed on this study Anatomy was performed only for biometry Biometry: BPD is 7.7 centimeters corresponding to 30 weeks and 5 days HC is 29.9 centimeters corresponding with 33 weeks and 1 day AC 28.5 centimeters corresponding to 32 weeks and 4 days FL is 6.0 centimeters corresponding to 31 weeks and 1 day age by ultrasound is 31 weeks and 6 days. Estimated date of delivery is 06/29/2025. Estimated weight is 1879 grams which is at the 67.1 percentile HC to AC ratio is 1.05 A biophysical profile study was performed as per protocol and the score was 8/8 Hypoechoic areas are noted that likely represent hemorrhage. One area towards the left measures 6.6 x 4.6 x 6.3 centimeters and a 2nd adjacent area measures 6.2 x 2.3 x 3.5 centimeters. This extends towards the lower uterine segment towards the cervix. The cervix is closed. On review of the prior 2 scans, these presumed hemorrhages were not present. Impression: 1. Single live intrauterine gestation that is vertex. Normal cervical length. Os is closed. Normal fluid volumes. 2. Anterior placenta. The placenta is not low lying. There is no previa. There is no direct findings an abruption. 3. Biophysical profile score is 8/8 4. Current estimated age is 31 weeks and 6 days with estimated date of delivery of 06/29/2025. Current weight of 1879 grams is at the 67.1 percentile. Current dating is concordant with the age predicted by the 1st ultrasound scan 5. There are 2 separate but adjacent hypoechoic areas towards the left extending into the lower uterine segment towards the cervix. These are likely hemorrhages. One measures 6.6 x 4.6 x 6.3 centimeters and the other measures 6.2 x 2.3 x 3.5 centimeters. These were not present on either of the 2 most recent scans that I reviewed. The exact source of this presumed hemorrhage is not visible on the exam though this do not appear to directly abut the placenta. Dictated by Rock Moreno MD @ 05/03/2025 4:34:56 AM (Electronically Signed)
[2025-05-03] MEDS: BETAMETHASONE SOD PHOS/ACETATE 6 MG/ML ML 12 MG IM (02:46)
--- NOTE | 2025-05-03 02:51 | P.OBT_ITS ---
History of Present Illness History of Present Illness Date Seen: 05/03/25 History of Present Illness: Ruma is a 29 year old at 31.1 weeks gestation by 1st trimester US, VONDA 07/04/2025, presents with vaginal bleeding that occurred this evening. She awoke to a gush of bright red bleeding at around 130. She had intercourse last evening at 9 pm. On arrival, she has continued to have red/pink tinged discharge. She is uncertain that her water broke. Her reported that the amount of her gush of fluid seemed similar to when her water broke with previous pregnancies. She endorses movement. She is tearful but overall appropriate. She denies any pain on arrival but within the hour starts to feel mild painful contraction. Her is otherwise uncomplicated. OB PROBLEM LIST # Bleeding in early ? * Subchorionic hemorrhage surrounding the gestational sac, measuring up to 5.6 cm.? f/u US unchanged size of SAVANNAH 2.8x 3.5x 2.6cm Imaging:? 12/02/2024 First tri US- 1. Sonographic gestational age 9 weeks 3 days and sonographic due date 07/04/2025.2. Inferior subchorionic hemorrhage measures 2.8 x 3.5 x 2.6 cm, previously measuring up to 5.6 cm. 02/12/2025 anatomy US-?1)Concordance of clinical and sonographic dating. 2)Incomplete visualization of the spine due to position. 3)Possible micrognathia. Level 2 maternal- medicine consultation recommended. 4)Remainder of the anatomic survey is normal. 5)Echogenic debris located within the amniotic fluid, not typical for this gestational age. Again, MFM consult recommended. ? 03/04/25:f/u US-1. Normal profile, spine and amniotic fluid with single deepest pocket measuring 5.3 cm. 2. Increased color flow posterior to the placenta. Follow-up in the third trimester recommended. 03/23/2025: Lev 2 US with normal findings. Placenta anterior. Baby moving naturally: Yes Bleeding: Yes Leaking fluid: Yes (Possibly) Meds Home Medications and Allergies Home Medications ?Medication ?Instructions ?Recorded ?Confirmed ?Type vits no.105-iron 30 1 pkg PO DAILY 07/20/23 0 05/03/25 History mg-folic acid 1.4 mg-dha 300 mg oral pack (Prena1 True) Allergies Allergy/AdvReac Type Severity Reaction Status Date / Time amoxicillin Allergy Intermediate Hives Verified 05/03/25 02:11 [facility] Medical History (Updated 05/03/25 @ 03:53 by Ju Robles CNM) Bleeding in early ?O20.9 - Hemorrhage in early , unspecified (ICD-10) Vaginal delivery ?O80 - Encounter for full-term uncomplicated delivery (ICD-10) Surgical History (Updated 12/02/24 @ 13:30 by Lucas Stanley CNM) [place] teeth extracted ?K08.409 - Partial loss of teeth, unspecified cause, unspecified class (ICD- 10) Social History (Updated 05/03/25 @ 03:40 by Ju Robles CNM) Narrative: SOCIAL? ? Education: Bachelor's? ? Work: [email or web address]? ? Partner: Yan? works as electrical engineering drafting officer Lives with: Yan and two other children age 3.5 and 17 months? ? Pets: none? ? Abuse: Denies past Safe at home with current partner ? ? ? Special Diet: Denies? ? Ok with a blood transfusion: yes? ? Culture or church beliefs: denies? RISK FACTORS? ? Exercise Times/wk: walking more in summer 5x week, less in winter1-3 times?week ? Depression/Anxiety: none? ? Previous Treatments NA ? Therapy NA Seat Belt Use: Routinely ? Smoking: Denies past/present? ? Alcohol/day: Denies while ? ? Caffeine: coffee 1-2 cups day? ? Drug Use: Denies past/present? What is your current living situation?: I presently have a place to live Problems where you live: no known problems In the past 12 months, utilities in danger of being shut off: no In past 12 months, lack of transportation kept you from medical appts, meetings, work, or getting things needed for daily living: no In the past 12 mos, have been you worried that your food would run out before you had money to buy more?: never true In the past 12 mos, the food you bought just didn't last and you didn't have money to buy more?: never true Smoking Status: Never smoker How often does anyone, including family, friends and others, physically hurt you : never How often does anyone, including family, friends and others, insult or talk down to you: never How often does anyone, including family, friends and others, threaten you with harm: never How often does anyone, including family, friends and others, scream or curse at you: rarely Health Related Social Needs: Other personal risk factors, not elsewhere classified (Z91.89) History History 3 Elective abortions 0 Para 2 Spontaneous abortions 0 Hx # Term Pregnancies 2 Ectopic pregnancies Hx # Pregnancies 0 Multiple births Number of Living Children 2 Past Pregnancies Del. Date GA/Weeks Outcome Route wt Inf Gender Labor Lgth Anesthesia Location Provider Compli 06/11/21 41 live - full term 7 lb 7 oz Female 23 hours e pidural [facility] 07/20/23 41 live - full term 8 lb Female 8 hours epidu [facility] - H&P: Exam Physical Exam Vital signs: Pulse BP Pulse Ox 86 113/67 98 05/03/25 02:09 05/03/25 02:09 05/03/25 02:13 Narrative: Vitals Reviewed Constitutional:? Alert and oriented x3 HEENT:? Normocephalic, atraumatic Neck:? Supple Abdomen:? Soft, nontender, and gravid. Extremities:? No edema or erythema : Normal external female anatomy. On speculum exam, there is a moderate amount of red blood in the vaginal vault. Cervix appears dilated at 1 cm with what appears to be amniotic membrane visible in the cervix. The vaginal mucosa are normal in appearance without visible lesions. NST: 140 bpm/moderate variability/15x15 accelerations/no decelerations/contractions every 3-5 minutes Weight: 155 lb Results Labs Laboratory Tests WBC 9.89 K/uL (4.50-11.00) 05/03/25 02:50 RBC 3.80 m/uL (4.00-5.20) L 05/03/25 02:50 Hgb 11.6 gm/dL (12.0-16.0) L 05/03/25 02:50 Hct 34.5 % (33.0-51.0) 05/03/25 02:50 MCV 91 fL (80-100) 05/03/25 02:50 MCH 31 pg (26-34) 05/03/25 02:50 MCHC 34 gm/dL (32-36) 05/03/25 02:50 RDW Coeff of Brandy 13.2 % (11.5-15.5) 05/03/25 02:50 Plt Count 211 K/uL (140-440) 05/03/25 02:50 Neut % (Auto) 74.4 % (42.0-72.0) H 05/03/25 02:50 Lymph % (Auto) 17.3 % (20-44) L 05/03/25 02:50 [place] % (Auto) 6.1 % (0.0-11.0) 05/03/25 02:50 Eos % (Auto) 1.3 % (0.0-7.0) 05/03/25 02:50 Baso % (Auto) 0.2 % (0.0-3.0) 05/03/25 02:50 Neut # (Auto) 7.40 K/uL (1.7-7.0) H 05/03/25 02:50 Lymph # (Auto) 1.70 K/uL (0.90-2.90) 05/03/25 02:50 [place] # (Auto) 0.60 K/UL (0.00-0.90) 05/03/25 02:50 Eos # (Auto) 0.13 K/uL (0.00-0.50) 05/03/25 02:50 Baso # (Auto) 0.02 K/uL (0.00-0.30) 05/03/25 02:50 Abs Immat Gran (auto) 0.07 K/uL (0.00-0.30) 05/03/25 02:50 Imm/Tot Granulo (auto) 0.7 % 05/03/25 02:50 Urine Color Red (Yellow) A 05/03/25 02:19 Urine Appearance Cloudy (Clear) A 05/03/25 02:19 Urine pH 6.5 (5.0-8.5) 05/03/25 02:19 Ur Specific Brady >= 1.030 (1.000-1.030) 05/03/25 02:19 Urine Protein 2+ (Negative) A 05/03/25 02:19 Urine Glucose (UA) Negative (Negative) 05/03/25 02:19 Urine Ketones Negative (Negative) 05/03/25 02:19 Urine Blood 3+ (Negative) A 05/03/25 02:19 Urine Nitrite Negative (Negative) 05/03/25 02:19 Urine Bilirubin Negative (Negative) 05/03/25 02:19 Urine Urobilinogen 1.0 (0.2-1.0) 05/03/25 02:19 Ur Leukocyte Esterase Negative (Negative) 05/03/25 02:19 Urine RBC 50-100 (0-2) A 05/03/25 02:19 Urine WBC 10-25 (0-5) A 05/03/25 02:19 Ur Squamous Epith Cells Few (None-Few) 05/03/25 02:19 Amorphous Sediment Few (None) A 05/03/25 02:19 Urine Bacteria Moderate (None) A 05/03/25 02:19 Blood Type O Positive 05/03/25 02:50 Antibody Screen NEGATIVE 05/03/25 02:50 Assessment and Plan Assessment and plan (1) Vaginal bleeding during , antepartum: Status: Acute (2) 31 weeks gestation of : Status: Acute (3) premature rupture of membranes (PPROM) with unknown onset of labor: Problem comment: Suspected Status: Acute Plan Vaginal bleeding in the 3rd trimester Suspected PPROM 31.1 weeks gestation GBS pending Transfer to higher level of care initiated. Patient desires to transfer to [facility]. Contact initiated to Dr. Kiara Zamudio accepting transfer of care. BMZ given. GBS collected and pending. Suspected PPROM, in discussion with accepting transfer, initiated Magnesium 6g bolus, Ancef 2g IV, Azythromycin 1g oral, and IV fluids. Difficult to rule in or out due to vaginal bleeding, recent intercourse, and normal SDP. Bedside US for growth, BPP, and cervical length. Normal cervical length, BPP 8/8, SDP 5.3, EFW 67%ile.
[2025-05-03 02:59] LABS: Hematocrit* 34.5 % (33.0-51.0); Hemoglobin* 11.6 gm/dL (12.0-16.0); Immature Granulocytes Abs Auto 0.07 K/uL (0.00-0.30); Immature Granulocytes Pct Auto 0.7 %; Mean Corpuscular HGB Conc 34 gm/dL (32-36); Mean Corpuscular Hemoglobin 31 pg (26-34); Mean Corpuscular Volume 91 fL (80-100); RDW Coefficient of Variation % 13.2 % (11.5-15.5); Red Blood Count* 3.80 m/uL (4.00-5.20); White Blood Count* 9.89 K/uL (4.50-11.00)
[2025-05-03 03:00] LABS: Lymphocytes Absolute Auto 1.70 K/uL (0.90-2.90); Slide Review Reflex No
[2025-05-03] MEDS: LACTATED RINGERS 1000 ML 1,000 ML 125 ML IV (03:27)
[2025-05-03] MEDS: MAGNESIUM IV 4 GM/100 ML PIGGYBACK IVPB (03:51)
[2025-05-03] MEDS: CEFAZOLIN 2 GM in 0.9 % SODIUM CHLORIDE Mini-bag 100 ML IVPB (03:52)
[2025-05-03] MEDS: AZITHROMYCIN 250 MG TABLET 1000 MG PO (04:05)
[2025-05-03] MEDS: MAGNESIUM IV 2 GM/50 ML PIGGYBACK IVPB (04:15)
--- NOTE | 2025-05-03 05:21 | PC.OBNST ---
NST Note NST Note Start: 05/03/25 05:19 Freq: ONCE Status: Active Protocol: Document 05/03/25 05:20 ALZ (Rec: 05/03/25 05:21 ALZ [id number]) NST Note 3 Para (# of births) 2 EDC 07/04/25 Gestational Age In 31 Weeks & 1 Days Weeks & Days Patient Presented Leaking fluid,Vaginal bleeding with Complaint(s) of Reactive Yes Appropriate for Yes Gestational Age CARRIE Aguero Date 05/03/25 Reactive Yes Appropriate for Yes Gestational Age CARRIE Arambula Date 05/03/25 OB NST charge Yes Complete NST Note Yes via Write Note The provider's electronic signature indicates the NST is reactive/appropriate for gestational age. *Note to provider: If an addendum is required, open the patient's chart and click on the note under the Nurse/Allied Health tab.
[2025-05-04 06:22] LABS: Strep B DNA Probe Negative (Negative)
[2025-05-04 06:31] LABS: Strep B Susceptibility Needed? No
== END 2025-05-03 04:50 | disposition other institution (70) ==
LOC: OB OUT 01:58 → OB 01:58
PROVIDERS: Visit Provider Advanced Practice Midwife
DX: O46.93 Antepartum hemorrhage, unspecified, third trimester (principal); Z3A.31 31 weeks gestation of pregnancy
CPT/HCPCS: 36415; 59025; 76816; 76817; 76819; 81001; 81003; 85025; 86850; 86900; 86901; 87081; 87086; 87210; 87653; G0463; A9270; J0690; J0702; J3475; J7120

== ENCOUNTER 2025-05-03 04:17 | Outpatient (CLI) | payer OTHER, MEDICAID, SELFPAY | END 2025-05-03 04:18 | disposition home or self-care (01) | PROVIDERS: Visit Provider Emergency Medicine | DX: O42.913 Preterm premature rupture of membranes, unspecified as to length of time between rupture and onset of labor, third trimester (principal); Z3A.30 30 weeks gestation of pregnancy | CPT/HCPCS: A0425; A0434 ==